=== PATIENT | male | born 1990 | race African-American/Black ===

== ENCOUNTER 2017-01-21 16:54 | Emergency (ER) | payer SELFPAY ==
[~2017-01-21] VITALS: Ht 185.4 cm; Wt 80.0 kg
[~2017-01-21 16:54] MED LIST changes: -NORCO 5/3251 TABLET PO
[2017-01-21 17:11] VITALS: BP 142/93
[2017-01-21] MEDS ORDERED: NORCO 5/3251 TABLET PO (18:27)
== END 2017-01-21 19:22 | disposition home or self-care (01) ==
LOC: EME 16:54
PROC: 2W39XYZ Immobilization of Left Upper Extremity using Other Device (ICD-10-PCS; principal; 2017-01-21)
DX: S42.002A Fracture of unspecified part of left clavicle, initial encounter for closed fracture (principal); W01.0XXA Fall on same level from slipping, tripping and stumbling without subsequent striking against object, initial encounter
CPT/HCPCS: 99281; 99283

== ENCOUNTER → 2017-01-21 | Outpatient (CLI) | payer SELFPAY ==
[~2017-01-21] MED LIST: ANUSOL-HC21 GM PR; COLACE100 MG PO; DAILY VALUE1 EACH PO; ELIGARD7.5 MG SC; EUCERIN CREME120 GM TP; EXTENDED PAIN650 MG PO; FOSAMAX70 MG PO; GERI-LANTA LIQ355 ML PO; INDERAL80 MG PO; KLONOPIN0.5 M1 PO; KLONOPIN1 MG PO; LIDEX 0.05% CRE60 GM TP; LITHIUM CARBON150 MG PO; LITHIUM CARBON300 MG PO; LITHIUM CARBON600 MG PO; MAALOX ADVANCE355 ML PO; METAMUCIL POWD798 GM PO; MIRALAX17 GM PO; MOTRIN600 MG PO; MULTIVITAMIN; NORCO 5/3251 TABLET PO; OCEAN NASAL 0.645 ML BOTH NARES; OYST-CAL-500500 MG PO; POLYETHYLENE GL17 GM PO; PREPARATION H O28 GM PR; PROLIXIN10 MG PO; PROLIXIN2.5 MG PO; SEROQUEL200 MG PO; SEROQUEL300 MG PO; SEROQUEL400 MG PO; STOOL SOFTENER100 MG PO; TYLENOL REGULA325 MG PO; VITAMIN D3400 UNI2 PO; VITAMIN D400 UNIT PO; ZYPREXA10 MG PO; ZYPREXA2.5 MG PO; ZYPREXA7.5 MG PO; [UNRECOGNIZED DRUG - OTHER] TP
== END ==
LOC: RAD 15:47
DX: M84.412A Pathological fracture, left shoulder, initial encounter for fracture (principal); M50.322 Other cervical disc degeneration at C5-C6 level
CPT/HCPCS: 72040; 73000

== ENCOUNTER 2017-02-05 20:29 | Emergency (ER) | payer SELFPAY ==
[~2017-02-05] VITALS: Ht 172.7 cm; Wt 88.1 kg
[~2017-02-05 20:29] MED LIST changes: +NORCO 5/3251 TABLET PO
[2017-02-06 00:14] VITALS: BP 138/88
== END 2017-02-06 00:15 | disposition home or self-care (01) ==
LOC: EME 20:29
DX: S42.022D Displaced fracture of shaft of left clavicle, subsequent encounter for fracture with routine healing (principal); X58.XXXD Exposure to other specified factors, subsequent encounter; Z98.890 Other specified postprocedural states; F63.81 Intermittent explosive disorder; F79 Unspecified intellectual disabilities
CPT/HCPCS: 73030; 99281; 99284

== ENCOUNTER 2017-02-09 21:35 | Emergency (ER) | payer SELFPAY ==
[~2017-02-09] VITALS: Ht 180.3 cm; Wt 79.5 kg
[2017-02-09 22:30] LABS: EOSINOPHIL (%) 1.1 % (0-5); EOSINOPHIL COUNT 0.1 K/uL (0-0.3); HEMATOCRIT 35.7 % (38.0-50.0); IMMATURE GRANULOCYTE (%) 0.4 % (0.0-0.7); INSTRUMENT ABS NEUTROPHIL CT 3.5 K/uL; LYMPHOCYTE COUNT 1.7 K/uL (1.0-2.8); MCH 31.6 PG (29.0-34.0); MCHC 33.1 G/DL (30.0-36.0); MCV 95.5 FL (86-99); MONOCYTE (%) 5.4 % (3-12); MONOCYTE COUNT 0.3 K/uL (0-0.8); NEUTROPHIL (%) 62.2 % (45-76); NEUTROPHIL COUNT 3.5 K/uL (1.8-6.4); PLATELET COUNT 213 K/uL (156-360); RBC DIS.WIDTH-CV 13.2 % (11.8-14.6); RBC DIS.WIDTH-SD 46.8 % (39-53); RED BLOOD COUNT 3.74 M/uL (4.00-5.50); WHITE BLOOD COUNT 5.5 K/uL (4.1-10.2)
[2017-02-09 22:38] LABS: CHLORIDE 107 mEq/L (99-109); POTASSIUM 4.1 mEq/L (3.7-5.4); SODIUM 141 mEq/L (136-147)
[2017-02-09 22:39] LABS: GLUCOSE 104 mg/dL (70-99)
[2017-02-09 22:41] LABS: ANION GAP 9 MEQ/L (2-14)
[2017-02-09 22:43] LABS: GFR ESTIMATE (CALCULATED) > 59 mL/min/
[2017-02-09 22:44] LABS: UREA NITROGEN (BUN) 13 mg/dL (9-23)
[2017-02-10] MEDS ORDERED: TRAMADOL HCL50 MG PO (01:25)
[2017-02-10 02:20] VITALS: BP 131/74
== END 2017-02-10 02:43 | disposition home or self-care (01) ==
LOC: EME 21:35
PROVIDERS: Emergency Medicine
DX: S00.83XA Contusion of other part of head, initial encounter (principal); H11.32 Conjunctival hemorrhage, left eye; M54.2 Cervicalgia; M25.512 Pain in left shoulder; Y04.0XXA Assault by unarmed brawl or fight, initial encounter; F79 Unspecified intellectual disabilities
CPT/HCPCS: 70450; 70486; 72125; 73030; 80048; 85025; 99281; 99284; J2270